=== PATIENT | male | born 1945 | race Asian ===

== ENCOUNTER 2017-05-26 22:14 | Emergency (ER) | payer MEDICARE ==
[~2017-05-26] VITALS: Ht 180.3 cm; Wt 108.9 kg
== END 2017-05-27 | disposition home or self-care (01) ==
LOC: FSED 22:14
DX: R50.9 Fever, unspecified (principal); B34.9 Viral infection, unspecified; I10 Essential (primary) hypertension
CPT/HCPCS: 87400; 99282